=== PATIENT | female | born 1985 | race Caucasian/White ===

== ENCOUNTER → 2017-08-12 | Outpatient (CLI) | payer BC ==
[2016-08-06 08:21] VITALS: BMI 22.7
[~2017-08-12] MED LIST: ACET-3017 PO; ALBU8.5H12 IH; AMO500 PO; ANTIBIOTIC; ANXIETY MED; AUG500 PO; AZIT1PAC21 PO; BENZ100C26 PO; BUSP10TA95 PO; CEP500 PO; CITA-156 PO; CLON0.5T66 PO; CODE118S5 PO; DEPO-LUPRON IJ; DESV50TA9 PO; DEXA2TAB7 PO; DIA5 PO; DIPH-740 PO; ESC10 PO; ETHI1TAB3 PO; FAMO20TA28 PO; FLUO-202 PO; FLUT16SP20 NS; GUAI-652 PO; HYDR-318 PO; HYDR-389 PO; HYDR-4225 PO; HYDR473S4 PO; IBUP-1618 PO; IBUP600T22 PO; IBUP800T37 PO; INDO75CA PO; LAMO25TA64 PO; LEVO-85 PO; LOR5/325 PO; MULT-865 PO; MULT1CAP41 PO; NIT100 PO; NORG1TAB6 PO; OMEP-114 PO; ONDA4TAB PO; ONDA4TAB97 PO; PANT40TA65 PO; PARO-243 PO; PNV1TABL92 PO; PRE10 PO; PRE20 PO; PRED20TA6 PO; PRO25 PO; PROM-110 PO; TEST5POW21 MC; [UNRECOGNIZED DRUG - OTHER]
[2017-08-12 15:44] LABS: PLATELET COUNT, AUTOMATED 160 K/uL (150-450)
== END ==
LOC: LAB 15:13
PROVIDERS: ATTEND Nurse Practitioner Primary Care
DX: R53.83 Other fatigue (principal)
CPT/HCPCS: 36415; 82040; 82247; 82306; 82310; 82374; 82435; 82565; 82728; 82947; 83540; 83550; 84075; 84132; 84155; 84295; 84439; 84443; 84450; 84460; 84520; 85025; 86665

== ENCOUNTER 2017-08-16 21:57 | Emergency (ER) | payer BC ==
[2016-08-06 08:21] VITALS: Ht 175.3 cm; Wt 72.6 kg
[~2017-08-16] VITALS: Ht 175.3 cm; Wt 72.6 kg
[~2017-08-16 21:57] MED LIST changes: -NAPR500T31 PO
--- NOTE | 2017-08-16 22:21 | ER Report ---
History and Physical Time Seen By MD: 22:21 Hx. of Stated Complaint: PT REPORTS PAIN IN RLQ THAT STARTED A COUPLE OF DAYS AGO. WAS SEEN IN DR OFFICE EARLIER TODAY. THEY SUGGESTED THAT SHE COME TO ER IF PAIN GOT WORSE. HPI/ROS 32-year-old female presents with generalized abdominal pain that has moved to the right mid abdomen. Pain started approximately 36 hours ago has been associated with intermittent spells of diarrhea. Pain tends to be constant without any fluctuation. She tells me the bumps in the car were also uncomfortable on the way here. She's had no significant vomiting. She's had no fevers, chills, chest pain, headache, neck pain, sore throat, congestion, vision changes, rash. Was seen by her primary care doctor earlier yesterday for evaluation and had an essentially normal workup. Was advised to return to the emergency department if symptoms got worse. She does describe it pain was more generalized and periumbilical and has kind of moved to the right side. She's had a total hysterectomy with right oophorectomy in the past. She's had no vaginal discharge, no pain or frequency with urination. She doesn't note any recent sick contacts. Review of systems per history of present illness otherwise negative Remainder of the 14 system rev: Yes Allergies: Coded Allergies: oxycodone (Unverified Allergy, Intermediate, SWOLLEN MOUTH OR HIVES , ) propoxyphene (Verified Allergy, Intermediate, SWOLLEN MOUTH OR HIVES , 08/16) latex (Unverified Allergy, Unknown, 08/16/17) Home Meds Active Scripts Naproxen (NAPROXEN) 500 Mg Tablet, 500 MG PO BID for 7 Days, #14 TAB Prov:VIELKA HERNANDEZ MD 08/17/17 Promethazine Hcl (PROMETHAZINE HCL) 25 Mg Tablet, 25 MG PO Q8H Y for nausea, # 10 TAB 0 Refills Prov:VIELKA HERNANDEZ MD 08/17/17 Citalopram Hydrobromide (CELEXA) 20 Mg Tablet, 20 MG PO QDAY, #90 TAB Prov:GAVIN HERNANDEZ DNP, ADMINISTRATIVE SUPPORT CLERK-BC 08/16/17 Pantoprazole Sodium (PANTOPRAZOLE SODIUM) 40 Mg Tablet., 40 MG PO QDAY, #30 CAP 6 Refills Prov:QASIM SCHMID MD 03/18/16 Reported Medications Multivitamin (DAILY MULTIPLE VITAMIN) 1 Each Tablet, 1 TAB PO DAILY 08/12/17 Hydroxyzine Hcl (HYDROXYZINE HCL) 25 Mg Tablet, 1 TAB PO QHS 08/12/17 Buspirone Hcl (BUSPIRONE HCL) 10 Mg Tablet, 1 TAB PO QHS, #10 TAB 08/12/17 Discontinued Reported Medications Paroxetine Hcl (PAXIL) 20 Mg Tablet, 20 MG PO QDAY, TAB 01/06/17 Testosterone (TESTOSTERONE) 5 Gm Powder, 5 GM MC 01/06/17 Diphenhydramine Hcl (BENADRYL) 25 Mg Capsule, 25 MG PO QHS Y for INSOMNIA, CAPSULE 08/05/16 Discontinued Scripts Indomethacin (INDOMETHACIN) 75 Mg Capsule.er, 75 MG PO BID for 7 Days, TAB Prov:CASEY URRUTIA MD 01/06/17 Past Medical/Surgical History Per history of present illness Hx Smoking: Yes (OFF AND ON FOR 5 YRS) Smoking Status: Current: Some Days Smoker Hx Substance Use Disorder: No Hx Alcohol Use: Yes Constitutional Vital Sign - Last 24 Hours 08/16/17 08/16/17 08/16/17 08/16/17 22:02 22:05 22:15 22:30 Temp 99.3 Pulse 86 87 90 Resp 14 B/P (MAP) 133/81 (98) 133/81 125/77 (93) Pulse Ox 95 95 98 O2 Delivery Room Air 08/16/17 08/16/17 08/16/17 08/16/17 22:45 23:05 23:15 23:30 Pulse 83 86 91 88 Resp 14 B/P (MAP) 110/77 (88) 113/72 (86) Pulse Ox 95 97 94 97 O2 Delivery Room Air 08/16/17 08/17/17 08/17/17 08/17/17 23:45 00:00 00:15 00:30 Pulse 89 88 86 82 B/P (MAP) 114/79 (91) 109/74 (86) Pulse Ox 94 94 94 95 08/17/17 08/17/17 08/17/17 08/17/17 01:10 01:11 01:11 01:15 Pulse 84 110 106 78 Resp 16 18 18 B/P (MAP) 104/60 (75) 102/77 (85) 107/72 (84) Pulse Ox 92 95 95 93 O2 Delivery Room Air Room Air Room Air Physical Exam Physical exam: Vital signs noted. General: Patient alert moderate discomfort. [Does not appear ill]. Skin: [Warm, dry, without rashes, or lesions]. Head: [Normocephalic, atraumatic]. Eye: [Normal conjunctiva]. ENMT: Oral mucosa moist. Neck: [Supple, trachea midline]. Cardiovascular: [Regular rate and rhythm without gallops murmurs or rubs. Normal peripheral perfusion with no edema noted]. Respiratory: [Lungs clear to auscultation bilaterally with nonlabored respirations. Breath sounds are equal with symmetric expansion]. Chest wall: [No tenderness or deformity noted]. Gastrointestinal: Abdomen soft with normal bowel sounds. Diffuse tenderness that localizes to the right mid abdomen with mild guarding and rebound. Localization actually proximal to no McBurney's point. No pelvic tenderness.. Back: Mild tenderness to percussion right flank. Musculoskeletal: [Normal range of motion throughout with normal strength. No tenderness, swelling or deformities noted. Moves all extremities equally]. Neurologic: [Patient alert and oriented 4 with no focal neuro deficits cranial nerves II - XII grossly intact. Patient has normal speech] Psychiatric: [Patient is cooperative with appropriate mood and affect] Medical Decision Making Data Points Result Diagram: 08/16/17 2212 08/16/17 2212 Laboratory Hematology Test 08/16/17 22:01 08/16/17 22:12 Urine Color Yellow Urine Clarity Clear Urine pH 5.0 pH (4.8-9.5) Urine Specific Gerber 1.013 Urine Protein Negative mg/dL (NEGATIVE) Urine Glucose (UA) Negative mg/dL (NEGATIVE) Urine Ketones Negative mg/dL (NEGATIVE) Urine Blood Negative (NEGATIVE) Urine Nitrite Negative (NEGATIVE) Urine Bilirubin Negative (NEGATIVE) Urine Urobilinogen 2.0 mg/dL (0.2-1.9) Urine Leukocyte Esterase Negative (NEGATIVE) Urine RBC <1 /HPF (0-2/HPF) Urine WBC 1 /HPF (0-5/HPF) Urine Squamous Epithelial Cells Many /LPF (</=FEW) Urine Bacteria Negative /HPF (NONE-FEW) Urine Mucus Few /HPF (NONE-FEW) Urine HCG, Qualitative Negative (NEGATIVE) Red Blood Count 5.36 M/uL (4.17-5.56) Mean Corpuscular Volume 90.8 fL (80.0-96.0) Mean Corpuscular Hemoglobin 31.6 pg (26.0-33.0) Mean Corpuscular Hemoglobin Concent 34.9 g/dL (32.0-36.0) Red Cell Distribution Width 13.7 % (11.5-14.5) Mean Platelet Volume 10.3 fL (7.2-11.1) Neutrophils (%) (Auto) 64.3 % (39.4-72.5) Lymphocytes (%) (Auto) 27.6 % (17.6-49.6) Monocytes (%) (Auto) 5.4 % (4.1-12.4) Eosinophils (%) (Auto) 1.5 % (0.4-6.7) Basophils (%) (Auto) 1.2 % (0.3-1.4) Nucleated RBC Relative Count (auto) 0.0 /100WBC Neutrophils # (Auto) 4.9 K/uL (2.0-7.4) Lymphocytes # (Auto) 2.1 K/uL (1.3-3.6) Monocytes # (Auto) 0.4 K/uL (0.3-1.0) Eosinophils # (Auto) 0.1 K/uL (0.0-0.5) Basophils # (Auto) 0.1 K/uL (0.0-0.1) Nucleated RBC Absolute Count (auto) 0.00 K/uL Sodium Level 140 mmol/L (137-145) Potassium Level 3.7 mmol/L (3.5-5.0) Chloride Level 104 mmol/L (98-107) Carbon Dioxide Level 24 mmol/L (22-31) Blood Urea Nitrogen 10 mg/dl (7-18) Creatinine 0.90 mg/dl (0.52-1.04) Glomerular Filtration Rate Calc > 60.0 Random Glucose 89 mg/dl (75-110) Calcium Level 9.1 mg/dl (8.4-10.2) Total Bilirubin 0.6 mg/dl (0.2-1.3) Aspartate Amino Transf (AST/SGOT) 25 U/L (0-35) Alanine Aminotransferase (ALT/SGPT) 33 U/L (0-56) Alkaline Phosphatase 81 U/L (0-126) Total Protein 7.2 gm/dl (6.3-8.2) Albumin 4.3 g/dl (3.5-5.0) Chemistry Test 08/16/17 22:01 08/16/17 22:12 Urine Color Yellow Urine Clarity Clear Urine pH 5.0 pH (4.8-9.5) Urine Specific Gerber 1.013 Urine Protein Negative mg/dL (NEGATIVE) Urine Glucose (UA) Negative mg/dL (NEGATIVE) Urine Ketones Negative mg/dL (NEGATIVE) Urine Blood Negative (NEGATIVE) Urine Nitrite Negative (NEGATIVE) Urine Bilirubin Negative (NEGATIVE) Urine Urobilinogen 2.0 mg/dL (0.2-1.9) Urine Leukocyte Esterase Negative (NEGATIVE) Urine RBC <1 /HPF (0-2/HPF) Urine WBC 1 /HPF (0-5/HPF) Urine Squamous Epithelial Cells Many /LPF (</=FEW) Urine Bacteria Negative /HPF (NONE-FEW) Urine Mucus Few /HPF (NONE-FEW) Urine HCG, Qualitative Negative (NEGATIVE) White Blood Count 7.7 k/uL (4.5-11.0) Red Blood Count 5.36 M/uL (4.17-5.56) Hemoglobin 17.0 g/dL (12.0-16.0) Hematocrit 48.7 % (34.0-47.0) Mean Corpuscular Volume 90.8 fL (80.0-96.0) Mean Corpuscular Hemoglobin 31.6 pg (26.0-33.0) Mean Corpuscular Hemoglobin Concent 34.9 g/dL (32.0-36.0) Red Cell Distribution Width 13.7 % (11.5-14.5) Platelet Count 174 K/uL (150-450) Mean Platelet Volume 10.3 fL (7.2-11.1) Neutrophils (%) (Auto) 64.3 % (39.4-72.5) Lymphocytes (%) (Auto) 27.6 % (17.6-49.6) Monocytes (%) (Auto) 5.4 % (4.1-12.4) Eosinophils (%) (Auto) 1.5 % (0.4-6.7) Basophils (%) (Auto) 1.2 % (0.3-1.4) Nucleated RBC Relative Count (auto) 0.0 /100WBC Neutrophils # (Auto) 4.9 K/uL (2.0-7.4) Lymphocytes # (Auto) 2.1 K/uL (1.3-3.6) Monocytes # (Auto) 0.4 K/uL (0.3-1.0) Eosinophils # (Auto) 0.1 K/uL (0.0-0.5) Basophils # (Auto) 0.1 K/uL (0.0-0.1) Nucleated RBC Absolute Count (auto) 0.00 K/uL Glomerular Filtration Rate Calc > 60.0 Calcium Level 9.1 mg/dl (8.4-10.2) Total Bilirubin 0.6 mg/dl (0.2-1.3) Aspartate Amino Transf (AST/SGOT) 25 U/L (0-35) Alanine Aminotransferase (ALT/SGPT) 33 U/L (0-56) Alkaline Phosphatase 81 U/L (0-126) Total Protein 7.2 gm/dl (6.3-8.2) Albumin 4.3 g/dl (3.5-5.0) Urinalysis Test 08/16/17 22:01 Urine Color Yellow Urine Clarity Clear Urine pH 5.0 pH (4.8-9.5) Urine Specific Gerber 1.013 Urine Protein Negative mg/dL (NEGATIVE) Urine Glucose (UA) Negative mg/dL (NEGATIVE) Urine Ketones Negative mg/dL (NEGATIVE) Urine Blood Negative (NEGATIVE) Urine Nitrite Negative (NEGATIVE) Urine Bilirubin Negative (NEGATIVE) Urine Urobilinogen 2.0 mg/dL (0.2-1.9) Urine Leukocyte Esterase Negative (NEGATIVE) Urine RBC <1 /HPF (0-2/HPF) Urine WBC 1 /HPF (0-5/HPF) Urine Squamous Epithelial Cells Many /LPF (</=FEW) Urine Bacteria Negative /HPF (NONE-FEW) Urine Mucus Few /HPF (NONE-FEW) Urine HCG, Qualitative Negative (NEGATIVE) EKG/Imaging Imaging CT abdomen and pelvis with no acute process. Appendix was visualized. Reviewed radiology report. ED Course/Re-evaluation ED Course 32-year-old female with approximately a day and a half of abdominal pain and diarrhea. Initial pain was more generalized and moved to the right lower to midquadrant. Serial exams with improvement although remained somewhat tender. No surgical signs on final exam. Was seen in primary care office earlier today and advised to return if symptoms got worse and is a day progressed and she's had increasing pain. Laboratory values are all reassuring with a normal white blood count, urinalysis shows no signs of infection and normal electrolytes. CT scan abdomen and pelvis read by radiology showed no acute process and notes that her appendix was well-visualized. At this point in time I'm not concerned for any pelvic or ovarian emergencies. She only has her left ovary symptoms are not consistent with torsion. She has no vaginal discharge. She's had no blood in her stools. Plan for home with 4 tablets of [place], Naprosyn and Phenergan. Patient follow-up with her primary doctor in the next 8-12 hours for recheck if symptoms have not resolved or to return to the emergency department for recheck. She will return here for any new or worsening symptoms. Discussed results and plan in detail with patient expressed understanding agreement. Re-evaluation Patient continues to have some mild to moderate diffuse tenderness localized to the right mid abdomen. No guarding or rebound at this time. I shown some improvement. Patient able to rest comfortably tolerating po fluids. Decision to Disposition Date: Aug 17, 2017 Decision to Disposition Time: 01:12 Depart Departure Latest Vital Signs Vital Signs Date Time Temp Pulse Resp B/P (MAP) Pulse Ox O2 Delivery O2 Flow Rate FiO2 08/17/17 01:15 78 93 08/17/17 01:11 18 107/72 (84) Room Air 08/16/17 22:05 99.3 Impression: Primary Impression: Abdominal pain Additional Impression: Diarrhea Condition: Improved Disposition: HOME OR SELF-CARE Referrals: QASIM SCHMID MD (PCP) New Scripts Naproxen (NAPROXEN) 500 Mg Tablet 500 MG PO BID for 7 Days, #14 TAB Prov: VIELKA HERNANDEZ MD 08/17/17 Promethazine Hcl (PROMETHAZINE HCL) 25 Mg Tablet 25 MG PO Q8H Y for nausea, #10 TAB 0 Refills Prov: VIELKA HERNANDEZ MD 08/17/17 Patient Instructions: Abdominal Pain (ED) Additional Instructions: Follow-up with your primary care doctor in the next 8-12 hours for recheck if the pain is not resolved. Return to the emergency department if the symptoms worsen or there are any new or other concerning symptoms. Problem Qualifiers VIELKA HERNANDEZ MD Aug 16, 2017 22:21
[2017-08-16 22:32] LABS: PLATELET COUNT, AUTOMATED 174 K/uL (150-450)
[2017-08-16] MEDS ORDERED: KETOROLAC 15 MG/ML VIAL IVP ONE (22:40)
[2017-08-16] MEDS ORDERED: IOPAMIDOL 76% 75 ML INFUS BTL 75 ML ONE (22:51)
[2017-08-16] MEDS ORDERED: MORPHINE 2 MG/ML SYR IVP PRN (23:30)
[2017-08-16] MEDS ORDERED: MORPHINE 10 MG/ML SYR IVP ONE (23:30)
--- NOTE | 2017-08-17 00:07 | RADIOLOGY IMAGING REPORT ---
FACILITY: [facility] - [place] PATIENT NAME: Kim Dorsey : 1985 MR: [id number] V: [id number] EXAM DATE: ORDERING PHYSICIAN: VIELKA HERNANDEZ TECHNOLOGIST: [place] [facility] [place]: Kim Dorsey : 1985 Visit/Account:[id number] Date of Sevice: 08/16/2017 CT of the abdomen and pelvis with contrast: Indication: Right lower quadrant pain. Technique: Helical CT was performed through the abdomen and pelvis following IV contrast enhancement with 75 cc of Isovue-[id number]. Multiplanar reconstructions are reviewed. One of the following dose optimization techniques was utilized in the performance of this exam: Autom ated exposure control; adjustment of the mA and/or kV according to the patient's size; or use of an i terative reconstruction technique. Specific details can be referenced in the facility's radiology C T exam operational policy. Comparison: None. Lower lung farris: No focal parenchymal or pleural abnormality is identified. Liver: Normal in size, shape, and density. There is uniform enhancement of the venous structures. Gallbladder/biliary tree: The gallbladder is normal in size and homogeneous in density. The bile duct s are normal in caliber. Pancreas: Normal in size, shape, and density. Spleen: Normal in size, shape, and density. Adrenal glands: Within normal limits. Kidneys/urinary bladder: There appears to be a small cyst in the left kidney. The kidneys are otherwi se normal in size, shape, and density. There are no signs of urinary tract calculus or obstruction. The urinary bladder is unremarkable, as visualized. Intestinal structures: Unremarkable, as visualized. There are no signs of obstruction or focal inflam matory changes. The appendix is well visualized and appears normal. There are no signs of acute appen dicitis. Pelvis: The uterus is absent. There are no signs of soft tissue mass or fluid collection in the pelvi s. Aorta and vascular structures: Within normal limits. Ascites or fluid collections: None seen. Skeletal structures: Intact and unremarkable. Impression: There are no signs of appendicitis. No acute process is clearly identified in the abdomen or pelvis. Report Dictated By: Daniel Ramirez MD at 08/16/2017 11:55 PM Report E-Signed By: Daniel Ramirez MD at 08/17/2017 12:02 AM WSN:[id number]
[2017-08-17] MEDS ORDERED: METOCLOPRAMIDE 10 MG/2 ML SDV IVP ONE (00:25)
[2017-08-17] MEDS ORDERED: diphenhydrAMINE 50 MG/ML VIAL IVP ONE (00:25)
[2017-08-17 01:11] VITALS: BP 102/77
[2017-08-17] MEDS ORDERED: NAPR500T31 PO (01:19)
[2017-08-17] MEDS ORDERED: PROM-110 PO (01:19)
[2017-08-17] MEDS ORDERED: ACET/HYDROC 5/325MG TH ER ONLY 2 TAB/BOTTLE PO PRN (01:20)
[2017-08-17] MEDS ORDERED: ACET/HYDROC 5/325MG TH ER ONLY 2 TAB/BOTTLE PO ONE ×2 (01:25)
[2017-08-18] MEDS ORDERED: ONDA4TAB PO (12:50)
== END 2017-08-17 01:37 | disposition home or self-care (01) ==
LOC: ER 22:33
DX: R10.31 Right lower quadrant pain (principal); R19.7 Diarrhea, unspecified
CPT/HCPCS: 74177; 81001; 81025; 85025; 96374; 96375; 99284; J1200; J1885; J2270; J2765; Q9967; 82040; 82247; 82310; 82374; 82435; 82565; 82947; 84075; 84132; 84155; 84295; 84450; 84460; 84520

== ENCOUNTER → 2017-08-16 | Outpatient (CLI) | payer BC ==
[2016-08-06 08:21] VITALS: BMI 22.7
[~2017-08-16] MED LIST changes: +NAPR500T31 PO
[2017-08-16 10:45] LABS: PLATELET COUNT, AUTOMATED 167 K/uL (150-450)
== END ==
LOC: LAB 10:13
PROVIDERS: ATTEND Nurse Practitioner Primary Care
DX: R10.31 Right lower quadrant pain (principal)
CPT/HCPCS: 36415; 85025

== ENCOUNTER 2017-08-18 10:36 | Emergency (ER) | payer BC ==
[2016-08-06 08:21] VITALS: Ht 175.3 cm; Wt 72.6 kg
[~2017-08-18] VITALS: Ht 175.3 cm; Wt 72.6 kg
[~2017-08-18 10:36] MED LIST changes: +NAPR500T31 PO
[2017-08-18] MEDS ORDERED: ONDANSETRON 4 MG/2 ML VIAL IVP ONE (10:55)
--- NOTE | 2017-08-18 10:58 | ER Report ---
History and Physical Time Seen By MD: 10:45 HPI/ROS CHIEF COMPLAINT: Abdominal pain HISTORY OF PRESENT ILLNESS: Patient is a 32-year-old female who presents the ED with complaint of abdominal pain for the past 3 days. She states that she was seen by her primary care provider 2 days ago and was at time having more right lower quadrant abdominal pain. She did have some labs completed and was told to go to the emergency room if she was having any worsening pain. She did go to the emergency room later that evening and had labs completed as well as a CT of the abdomen/pelvis all of which were essentially normal. Patient states that she was given some Lortab to take for pain relief states that she was continuing to have intermittent pain and did not like to take the Lortab due to making her drowsy and she has 3 children. Patient states that today she noticed the pain being slightly worse she states that now it has been radiating into her right upper quadrant and right lower back area. She has had a couple episodes of diarrhea today but denies any blood or black stools. She states that she has been nauseated but denies any vomiting. Patient states that the only abdominal surgery she had is a hysterectomy and a right oopherectomy. She denies any dysuria, hematuria, increased urinary frequency. REVIEW OF SYSTEMS: Constitutional: [No fever, no chills.] Eyes: [No discharge.] ENT: [No sore throat.] Cardiovascular: [No chest pain, no palpitations.] Respiratory: [No cough, no shortness of breath.] Gastrointestinal: [No abdominal pain, no vomiting.] Genitourinary: [No hematuria.] Musculoskeletal: [No back pain.] Skin: [No rashes.] Neurological: [No headache.] Allergies: Coded Allergies: oxycodone (Unverified Allergy, Intermediate, SWOLLEN MOUTH OR HIVES , ) propoxyphene (Verified Allergy, Intermediate, SWOLLEN MOUTH OR HIVES , 08/16) latex (Unverified Allergy, Unknown, 08/16/17) Home Meds Active Scripts Naproxen (NAPROXEN) 500 Mg Tablet, 500 MG PO BID for 7 Days, #14 TAB Prov:VIELKA HERNANDEZ MD 08/17/17 Promethazine Hcl (PROMETHAZINE HCL) 25 Mg Tablet, 25 MG PO Q8H Y for nausea, # 10 TAB 0 Refills Prov:VIELKA HERNANDEZ MD 08/17/17 Citalopram Hydrobromide (CELEXA) 20 Mg Tablet, 20 MG PO QDAY, #90 TAB Prov:GAVIN HERNANDEZ DNP, COMPUTER NETWORKER-BC 08/16/17 Pantoprazole Sodium (PANTOPRAZOLE SODIUM) 40 Mg Tablet.dr, 40 MG PO QDAY, #30 CAP 6 Refills Prov:QASIM SCHMID MD 03/18/16 Reported Medications Multivitamin (DAILY MULTIPLE VITAMIN) 1 Each Tablet, 1 TAB PO DAILY 08/12/17 Hydroxyzine Hcl (HYDROXYZINE HCL) 25 Mg Tablet, 1 TAB PO QHS 08/12/17 Buspirone Hcl (BUSPIRONE HCL) 10 Mg Tablet, 1 TAB PO QHS, #10 TAB 08/12/17 Discontinued Reported Medications Paroxetine Hcl (PAXIL) 20 Mg Tablet, 20 MG PO QDAY, TAB 01/06/17 Testosterone (TESTOSTERONE) 5 Gm Powder, 5 GM MC 01/06/17 Diphenhydramine Hcl (BENADRYL) 25 Mg Capsule, 25 MG PO QHS Y for INSOMNIA, CAPSULE 08/05/16 Discontinued Scripts Indomethacin (INDOMETHACIN) 75 Mg Capsule.er, 75 MG PO BID for 7 Days, TAB Prov:CASEY URRUTIA MD 01/06/17 Reviewed Nurses Notes: Yes Old Medical Records Reviewed: Yes Hx Smoking: Yes (OFF AND ON FOR 5 YRS) Smoking Status: Current: Some Days Smoker Hx Substance Use Disorder: No Hx Alcohol Use: Yes Constitutional Vital Sign - Last 24 Hours 08/18/17 08/18/17 08/18/17 08/18/17 10:44 10:45 10:51 11:00 Temp 98.4 Pulse 80 101 Resp 16 B/P (MAP) 123/95 (104) 123/95 114/78 (90) Pulse Ox 97 99 O2 Delivery Room Air 08/18/17 08/18/17 08/18/17 08/18/17 11:06 11:21 11:30 11:36 Pulse 73 68 71 B/P (MAP) 120/84 (96) Pulse Ox 95 94 97 08/18/17 08/18/17 08/18/17 08/18/17 11:41 11:41 11:46 11:46 Pulse 69 69 78 78 Pulse Ox 93 93 92 92 08/18/17 08/18/17 08/18/17 08/18/17 11:51 11:51 11:56 11:56 Pulse 78 78 68 68 Pulse Ox 96 96 96 96 08/18/17 08/18/17 08/18/17 08/18/17 12:00 12:00 12:01 12:01 Pulse 68 68 B/P (MAP) 104/76 (85) 104/76 (85) Pulse Ox 97 97 08/18/17 12:06 Pulse 69 Pulse Ox 92 Physical Exam General Appearance: The patient is alert, has no immediate need for airway protection and no signs of toxicity. Patient appears to be in some mild distress. Eyes: Pupils equal and round no pallor or injection. ENT, Mouth: Mucous membranes are moist. Respiratory: There are no retractions, lungs are clear to auscultation. Cardiovascular: Regular rate and rhythm. Gastrointestinal: There is right upper quadrant, epigastric, right lower quadrant, suprapubic tenderness with palpation. The worst pain appears to be in her right upper quadrant at this time. Negative CVA tenderness to percussion bilaterally. Normal bowel sounds in all 4 quadrants. The abdomen is soft. There is no rebound but there is some slight guarding more on the right upper and lower quadrants. Skin: Warm and dry, no rashes. Musculoskeletal: Neck is supple non tender. Extremities are nontender, nonswollen and have full range of motion. DIFFERENTIAL DIAGNOSIS: After history and physical exam differential diagnosis was considered for abdominal pain including but not limited to appendicitis, cholecystitis, gastritis and urinary tract infection. Medical Decision Making Data Points Result Diagram: 08/18/17 1047 08/18/17 1047 Laboratory Hematology Test 08/18/17 10:42 08/18/17 10:47 Urine Color Straw Urine Clarity Clear Urine pH 7.0 pH (4.8-9.5) Urine Specific [place] 1.002 Urine Protein Negative mg/dL (NEGATIVE) Urine Glucose (UA) Negative mg/dL (NEGATIVE) Urine Ketones Negative mg/dL (NEGATIVE) Urine Blood Negative (NEGATIVE) Urine Nitrite Negative (NEGATIVE) Urine Bilirubin Negative (NEGATIVE) Urine Urobilinogen Negative mg/dL (0.2-1.9) Urine Leukocyte Esterase Negative (NEGATIVE) Urine RBC None /HPF (0-2/HPF) Urine WBC <1 /HPF (0-5/HPF) Urine Squamous Epithelial Cells Few /LPF (</=FEW) Urine Bacteria Negative /HPF (NONE-FEW) Urine Mucus None /HPF (NONE-FEW) Red Blood Count 5.12 M/uL (4.17-5.56) Mean Corpuscular Volume 91.2 fL (80.0-96.0) Mean Corpuscular Hemoglobin 31.9 pg (26.0-33.0) Mean Corpuscular Hemoglobin Concent 35.0 g/dL (32.0-36.0) Red Cell Distribution Width 13.8 % (11.5-14.5) Mean Platelet Volume 9.9 fL (7.2-11.1) Neutrophils (%) (Auto) 76.6 % (39.4-72.5) Lymphocytes (%) (Auto) 17.3 % (17.6-49.6) Monocytes (%) (Auto) 5.0 % (4.1-12.4) Eosinophils (%) (Auto) 0.3 % (0.4-6.7) Basophils (%) (Auto) 0.8 % (0.3-1.4) Nucleated RBC Relative Count (auto) 0.0 /100WBC Neutrophils # (Auto) 4.7 K/uL (2.0-7.4) Lymphocytes # (Auto) 1.1 K/uL (1.3-3.6) Monocytes # (Auto) 0.3 K/uL (0.3-1.0) Eosinophils # (Auto) 0.0 K/uL (0.0-0.5) Basophils # (Auto) 0.1 K/uL (0.0-0.1) Nucleated RBC Absolute Count (auto) 0.00 K/uL Sodium Level 140 mmol/L (137-145) Potassium Level 3.8 mmol/L (3.5-5.0) Chloride Level 102 mmol/L (98-107) Carbon Dioxide Level 25 mmol/L (22-31) Blood Urea Nitrogen 8 mg/dl (7-18) Creatinine 0.80 mg/dl (0.52-1.04) Glomerular Filtration Rate Calc > 60.0 Random Glucose 84 mg/dl (75-110) Lactate 1.3 mmol/L (0.7-2.1) Calcium Level 9.3 mg/dl (8.4-10.2) Total Bilirubin 0.9 mg/dl (0.2-1.3) Aspartate Amino Transf (AST/SGOT) 21 U/L (0-35) Alanine Aminotransferase (ALT/SGPT) 33 U/L (0-56) Alkaline Phosphatase 71 U/L (0-126) Total Protein 7.3 gm/dl (6.3-8.2) Albumin 4.5 g/dl (3.5-5.0) Lipase 72 U/L (23-300) Chemistry Test 08/18/17 10:42 08/18/17 10:47 Urine Color Straw Urine Clarity Clear Urine pH 7.0 pH (4.8-9.5) Urine Specific [place] 1.002 Urine Protein Negative mg/dL (NEGATIVE) Urine Glucose (UA) Negative mg/dL (NEGATIVE) Urine Ketones Negative mg/dL (NEGATIVE) Urine Blood Negative (NEGATIVE) Urine Nitrite Negative (NEGATIVE) Urine Bilirubin Negative (NEGATIVE) Urine Urobilinogen Negative mg/dL (0.2-1.9) Urine Leukocyte Esterase Negative (NEGATIVE) Urine RBC None /HPF (0-2/HPF) Urine WBC <1 /HPF (0-5/HPF) Urine Squamous Epithelial Cells Few /LPF (</=FEW) Urine Bacteria Negative /HPF (NONE-FEW) Urine Mucus None /HPF (NONE-FEW) White Blood Count 6.2 k/uL (4.5-11.0) Red Blood Count 5.12 M/uL (4.17-5.56) Hemoglobin 16.3 g/dL (12.0-16.0) Hematocrit 46.6 % (34.0-47.0) Mean Corpuscular Volume 91.2 fL (80.0-96.0) Mean Corpuscular Hemoglobin 31.9 pg (26.0-33.0) Mean Corpuscular Hemoglobin Concent 35.0 g/dL (32.0-36.0) Red Cell Distribution Width 13.8 % (11.5-14.5) Platelet Count 155 K/uL (150-450) Mean Platelet Volume 9.9 fL (7.2-11.1) Neutrophils (%) (Auto) 76.6 % (39.4-72.5) Lymphocytes (%) (Auto) 17.3 % (17.6-49.6) Monocytes (%) (Auto) 5.0 % (4.1-12.4) Eosinophils (%) (Auto) 0.3 % (0.4-6.7) Basophils (%) (Auto) 0.8 % (0.3-1.4) Nucleated RBC Relative Count (auto) 0.0 /100WBC Neutrophils # (Auto) 4.7 K/uL (2.0-7.4) Lymphocytes # (Auto) 1.1 K/uL (1.3-3.6) Monocytes # (Auto) 0.3 K/uL (0.3-1.0) Eosinophils # (Auto) 0.0 K/uL (0.0-0.5) Basophils # (Auto) 0.1 K/uL (0.0-0.1) Nucleated RBC Absolute Count (auto) 0.00 K/uL Glomerular Filtration Rate Calc > 60.0 Lactate 1.3 mmol/L (0.7-2.1) Calcium Level 9.3 mg/dl (8.4-10.2) Total Bilirubin 0.9 mg/dl (0.2-1.3) Aspartate Amino Transf (AST/SGOT) 21 U/L (0-35) Alanine Aminotransferase (ALT/SGPT) 33 U/L (0-56) Alkaline Phosphatase 71 U/L (0-126) Total Protein 7.3 gm/dl (6.3-8.2) Albumin 4.5 g/dl (3.5-5.0) Lipase 72 U/L (23-300) Urinalysis Test 08/18/17 10:42 Urine Color Straw Urine Clarity Clear Urine pH 7.0 pH (4.8-9.5) Urine Specific [place] 1.002 Urine Protein Negative mg/dL (NEGATIVE) Urine Glucose (UA) Negative mg/dL (NEGATIVE) Urine Ketones Negative mg/dL (NEGATIVE) Urine Blood Negative (NEGATIVE) Urine Nitrite Negative (NEGATIVE) Urine Bilirubin Negative (NEGATIVE) Urine Urobilinogen Negative mg/dL (0.2-1.9) Urine Leukocyte Esterase Negative (NEGATIVE) Urine RBC None /HPF (0-2/HPF) Urine WBC <1 /HPF (0-5/HPF) Urine Squamous Epithelial Cells Few /LPF (</=FEW) Urine Bacteria Negative /HPF (NONE-FEW) Urine Mucus None /HPF (NONE-FEW) EKG/Imaging Imaging RUQ US: IMPRESSION: 1. Negative ultrasound. Specifically no cholelithiasis or cholecystitis change. Report Dictated By: Eddie Pond MD at 08/18/2017 12:33 PM Report E-Signed By: Eddie Pond MD at 08/18/2017 12:37 PM ED Course/Re-evaluation ED Course Will obtain labs. Patient will be given 4 mg IV Zofran for nausea relief. 08/18/2017 12:47:15 pm - absent imaging with patient. Given her normal CT from just 2 days ago it appears that there is not any acute cholecystitis or appendicitis at this point. She also has essentially normal labs. Discussed possibility of other: Issues or other gastrointestinal issues and should follow- up with GI and her primary care regarding this. She may end up needing a colonoscopy given that she has been having some diarrhea with this pain. Decision to Disposition Date: Aug 18, 2017 Decision to Disposition Time: 12:48 Depart Departure Latest Vital Signs Vital Signs Date Time Temp Pulse Resp B/P (MAP) Pulse Ox O2 Delivery O2 Flow Rate FiO2 08/18/17 12:06 69 92 08/18/17 12:00 104/76 (85) 08/18/17 10:45 98.4 16 Room Air Impression: Primary Impression: Abdominal pain Condition: Improved Disposition: HOME OR SELF-CARE Referrals: QASIM SCHMID MD (PCP) GAVIN HERNANDEZ DNP, COMPUTER NETWORKER- GASTROENTEROLOGY New Scripts Ondansetron (ZOFRAN ODT) 4 Mg Tab.rapdis 4 MG PO Q6H Y for NAUSEA/VOMITING, #12 TAB.ANDREW Prov: OXANA PULIDO PA-C 08/18/17 Patient Instructions: Abdominal Pain (ED) Additional Instructions: Stay well-hydrated. Follow-up with primary care provider gastroenterology in 2- 3 days. If having any worsening or concerning symptoms may return to the emergency department. Problem Qualifiers Primary Impression: Abdominal pain Abdominal location: unspecified location Qualified Codes: R10.9 - Unspecified abdominal pain OXANA PULIDO PA-C Aug 18, 2017 10:58
[2017-08-18 11:06] LABS: PLATELET COUNT, AUTOMATED 155 K/uL (150-450)
[2017-08-18] MEDS ORDERED: KETOROLAC 15 MG/ML VIAL IVP ONE (11:40)
--- NOTE | 2017-08-18 12:41 | RADIOLOGY IMAGING REPORT ---
FACILITY: [facility] - [place] PATIENT NAME: Kim Dorsey : 1985 MR: [id number] V: [id number] EXAM DATE: ORDERING PHYSICIAN: OXANA PULIDO TECHNOLOGIST: Location: [facility] - [place] Patient: Kim Dorsey : 1985 Visit/Account:[id number] Date of Sevice: 08/18/2017 GALLBLADDER HISTORY: RUQ pain, nausea GALLBLADDER HISTORY: RUQ pain, nausea ADDITIONAL HISTORY: None. COMPARISON: 01/10/2016 FINDINGS: Gallbladder: Unremarkable; no stones or sludge. Liver: 15 cm. Homogenous echotexture. No focal lesions. Common duct: Normal, 2.9 mm diameter. Pancreas: Normal where visualized Right kidney: 10.5 x 3.6 x 5.2 cm. No hydronephrosis no cortical mass lesions Upper abdominal aorta and IVC: Patent. Ascites: None visualized. IMPRESSION: 1. Negative ultrasound. Specifically no cholelithiasis or cholecystitis change. Report Dictated By: Eddie Pond MD at 08/18/2017 12:33 PM Report E-Signed By: Eddie Pond MD at 08/18/2017 12:37 PM WSN:[id number]
[2017-08-18] MEDS ORDERED: ONDA4TAB PO (12:50)
[2017-08-18 13:00] VITALS: BP 111/70
== END 2017-08-18 12:53 | disposition home or self-care (01) ==
LOC: ER 10:48
DX: R10.31 Right lower quadrant pain (principal); R10.11 Right upper quadrant pain; M54.5 Low back pain
CPT/HCPCS: 76705; 81001; 83605; 83690; 85025; 96374; 96375; 99284; J1885; J2405; 82040; 82247; 82310; 82374; 82435; 82565; 82947; 84075; 84132; 84155; 84295; 84450; 84460; 84520

== ENCOUNTER → 2017-08-25 | Outpatient (REF) | payer BC ==
[2016-08-06 08:21] VITALS: BMI 22.7
[2017-08-25 15:57] LABS: PLATELET COUNT, AUTOMATED 150 K/uL (150-450)
== END ==
LOC: ZZSENDIN 15:48
PROVIDERS: ATTEND Obstetrics & Gynecology
DX: R10.2 Pelvic and perineal pain (principal)
CPT/HCPCS: 82040; 82247; 82310; 82374; 82435; 82565; 82947; 84075; 84132; 84155; 84295; 84450; 84460; 84520; 85025

== ENCOUNTER → 2017-08-26 | Outpatient (CLI) | payer BC ==
[2016-08-06 08:21] VITALS: BMI 22.7
== END ==
LOC: LAB 09:06
PROVIDERS: ATTEND Obstetrics & Gynecology
DX: A07.1 Giardiasis [lambliasis] (principal)
CPT/HCPCS: 87045; 87177; 87205; 87269; 87324; 87449

== ENCOUNTER → 2017-09-21 | Outpatient (CLI) | payer BC ==
[2016-08-06 08:21] VITALS: BMI 22.7
== END ==
LOC: LAB 13:17
PROVIDERS: ATTEND Obstetrics & Gynecology
DX: A07.1 Giardiasis [lambliasis] (principal)
CPT/HCPCS: 87269

== ENCOUNTER 2017-09-29 06:01 | Emergency (ER) | payer BC ==
[2016-08-06 08:21] VITALS: Wt 72.6 kg
[2017-09-29] MEDS ORDERED: ERYT-108 PO (06:08)
--- NOTE | 2017-09-29 06:12 | ER Report ---
History and Physical Time Seen By MD: 06:12 Hx. of Stated Complaint: PT REPORTS WAKING UP THIS MORNING WITH PAIN IN LEFT FOOT THAT IS KEEPING HER FROM WALKING. REPORTS NO INJURY TO THE AREA. CMS INTACT. MOVEMENT LIMITED BY PAIN. MILD SWELLING TO OUTTER ASPECT OF FOOT. HPI/ROS CHIEF COMPLAINT: left foot pain HISTORY OF PRESENT ILLNESS: This is a 32 year old female. She awoke with pain in the left foot. It hurts while simply at rest, but significantly worsens with weight. She is unable to walk on the foot at this time. No injury. No change in activity or suspicion for overuse injury. No history of pain like this in the past. She has normal sensation. She can move the foot, but movement does increase the pain. Mild swelling associated with outer aspect of the foot. Skin without rashes. No family history of gout or other inflammatory conditions. REVIEW OF SYSTEMS: Respiratory: No cough or shortness of breath. Cardiovascular: No chest pain. Gastrointestinal: No nausea or vomiting. Allergies: Coded Allergies: oxycodone (Unverified Allergy, Intermediate, SWOLLEN MOUTH OR HIVES , 09/29) propoxyphene (Verified Allergy, Intermediate, SWOLLEN MOUTH OR HIVES , ) latex (Unverified Allergy, Unknown, 09/29/17) Home Meds Active Scripts Indomethacin (INDOMETHACIN) 25 Mg Capsule, 25 MG PO DIRECTED, #27 CAPSULE 0 Refills Take 2 tablets three times a day for 3 days, then decrease to 1 tablet three times a day for 3 days, then stop. Take with food. Prov:HUMAIRA BROOKS MD 09/29/17 Citalopram Hydrobromide (CELEXA) 20 Mg Tablet, 20 MG PO QDAY, #90 TAB Prov:GAVIN HERNANDEZ DNP, WALKING DRAGLINE OPERATOR-BC 08/16/17 Pantoprazole Sodium (PANTOPRAZOLE SODIUM) 40 Mg Tablet., 40 MG PO QDAY, #30 CAP 6 Refills Prov:QASIM SCHMID MD 03/18/16 Reported Medications Erythromycin Base (ERYTHROMYCIN) 500 Mg Tablet, 500 MG PO DAILY 09/29/17 Multivitamin (DAILY MULTIPLE VITAMIN) 1 Each Tablet, 1 TAB PO DAILY 08/12/17 Hydroxyzine Hcl (HYDROXYZINE HCL) 25 Mg Tablet, 1 TAB PO QHS 08/12/17 Buspirone Hcl (BUSPIRONE HCL) 10 Mg Tablet, 1 TAB PO QHS, #10 TAB 08/12/17 Discontinued Scripts Ondansetron (ZOFRAN ODT) 4 Mg Tab.rapdis, 4 MG PO Q6H Y for NAUSEA/VOMITING, # 12 TAB.ANDREW Prov:OXANA PULIDO PA-C 08/18/17 Naproxen (NAPROXEN) 500 Mg Tablet, 500 MG PO BID for 7 Days, #14 TAB Prov:VIELKA HERNANDEZ MD 08/17/17 Promethazine Hcl (PROMETHAZINE HCL) 25 Mg Tablet, 25 MG PO Q8H Y for nausea, # 10 TAB 0 Refills Prov:VIELKA HERNANDEZ MD 08/17/17 Reviewed Nurses Notes: Yes Hx Smoking: Yes (OFF AND ON FOR 5 YRS) Smoking Status: Current: Some Days Smoker Hx Substance Use Disorder: No Hx Alcohol Use: Yes Constitutional Vital Sign - Last 24 Hours 09/29/17 09/29/17 06:08 08:03 Temp 97.8 Pulse 75 84 Resp 14 14 B/P (MAP) 111/84 112/87 (95) Pulse Ox 95 98 O2 Delivery Room Air Room Air Physical Exam General: Alert, no acute distress. Musculoskeletal: Pain with palpation over the forefoot and metatarsals on the lateral aspect. No real pain with palpation of the arch or calcaneus. No pain in the toes. No pain in the ankle or lower leg. Skin: No redness or warmth. No rash. Mild swelling in the area of pain. Cardiovascular: Normal pulses and capillary refill. Neuro: Normal sensation and no weakness. Medical Decision Making Data Points Result Diagram: 09/29/17 0625 09/29/17 0625 Laboratory Hematology Test 09/29/17 06:25 Red Blood Count 4.90 M/uL (4.17-5.56) Mean Corpuscular Volume 91.3 fL (80.0-96.0) Mean Corpuscular Hemoglobin 32.5 pg (26.0-33.0) Mean Corpuscular Hemoglobin Concent 35.6 g/dL (32.0-36.0) Red Cell Distribution Width 12.8 % (11.5-14.5) Mean Platelet Volume 10.2 fL (7.2-11.1) Neutrophils (%) (Auto) 67.8 % (39.4-72.5) Lymphocytes (%) (Auto) 24.7 % (17.6-49.6) Monocytes (%) (Auto) 5.3 % (4.1-12.4) Eosinophils (%) (Auto) 1.6 % (0.4-6.7) Basophils (%) (Auto) 0.6 % (0.3-1.4) Nucleated RBC Relative Count (auto) 0.1 /100WBC Neutrophils # (Auto) 4.2 K/uL (2.0-7.4) Lymphocytes # (Auto) 1.5 K/uL (1.3-3.6) Monocytes # (Auto) 0.3 K/uL (0.3-1.0) Eosinophils # (Auto) 0.1 K/uL (0.0-0.5) Basophils # (Auto) 0.0 K/uL (0.0-0.1) Nucleated RBC Absolute Count (auto) 0.00 K/uL Erythrocyte Sedimentation Rate 1 mm/HOUR (0-20) Sodium Level 141 mmol/L (137-145) Potassium Level 4.1 mmol/L (3.5-5.0) Chloride Level 105 mmol/L (98-107) Carbon Dioxide Level 22 mmol/L (22-31) Blood Urea Nitrogen 8 mg/dl (7-18) Creatinine 0.80 mg/dl (0.52-1.04) Glomerular Filtration Rate Calc > 60.0 Random Glucose 81 mg/dl (75-110) Uric Acid 5.0 mg/dl (2.5-7.5) Calcium Level 9.2 mg/dl (8.4-10.2) Total Bilirubin 0.6 mg/dl (0.2-1.3) Aspartate Amino Transf (AST/SGOT) 21 U/L (0-35) Alanine Aminotransferase (ALT/SGPT) 29 U/L (0-56) Alkaline Phosphatase 63 U/L (0-126) C-Reactive Protein < 0.5 mg/dl (<1.0) Total Protein 6.7 gm/dl (6.3-8.2) Albumin 4.2 g/dl (3.5-5.0) Chemistry Test 09/29/17 06:25 White Blood Count 6.2 k/uL (4.5-11.0) Red Blood Count 4.90 M/uL (4.17-5.56) Hemoglobin 15.9 g/dL (12.0-16.0) Hematocrit 44.7 % (34.0-47.0) Mean Corpuscular Volume 91.3 fL (80.0-96.0) Mean Corpuscular Hemoglobin 32.5 pg (26.0-33.0) Mean Corpuscular Hemoglobin Concent 35.6 g/dL (32.0-36.0) Red Cell Distribution Width 12.8 % (11.5-14.5) Platelet Count 148 K/uL (150-450) Mean Platelet Volume 10.2 fL (7.2-11.1) Neutrophils (%) (Auto) 67.8 % (39.4-72.5) Lymphocytes (%) (Auto) 24.7 % (17.6-49.6) Monocytes (%) (Auto) 5.3 % (4.1-12.4) Eosinophils (%) (Auto) 1.6 % (0.4-6.7) Basophils (%) (Auto) 0.6 % (0.3-1.4) Nucleated RBC Relative Count (auto) 0.1 /100WBC Neutrophils # (Auto) 4.2 K/uL (2.0-7.4) Lymphocytes # (Auto) 1.5 K/uL (1.3-3.6) Monocytes # (Auto) 0.3 K/uL (0.3-1.0) Eosinophils # (Auto) 0.1 K/uL (0.0-0.5) Basophils # (Auto) 0.0 K/uL (0.0-0.1) Nucleated RBC Absolute Count (auto) 0.00 K/uL Erythrocyte Sedimentation Rate 1 mm/HOUR (0-20) Glomerular Filtration Rate Calc > 60.0 Uric Acid 5.0 mg/dl (2.5-7.5) Calcium Level 9.2 mg/dl (8.4-10.2) Total Bilirubin 0.6 mg/dl (0.2-1.3) Aspartate Amino Transf (AST/SGOT) 21 U/L (0-35) Alanine Aminotransferase (ALT/SGPT) 29 U/L (0-56) Alkaline Phosphatase 63 U/L (0-126) C-Reactive Protein < 0.5 mg/dl (<1.0) Total Protein 6.7 gm/dl (6.3-8.2) Albumin 4.2 g/dl (3.5-5.0) EKG/Imaging Imaging INDICATION: foot pain EXAM DATE: 09/29/2017 6:17 AM COMPARISON: None. FINDINGS: 3 views left foot. Mineralization is normal. No acute alignment abnormality or fracture. Soft tissues are unremarkable. IMPRESSION: Normal left foot. Report Dictated By: Steve Pal MD at 09/29/2017 6:48 AM ED Course/Re-evaluation ED Course Discussed the results of labs with the patient. Negative imaging. Conservative treatment discussed with follow-up at orthopedic surgery if not improving. Decision to Disposition Date: Sep 29, 2017 Decision to Disposition Time: 07:54 Depart Departure Latest Vital Signs Vital Signs Date Time Temp Pulse Resp B/P (MAP) Pulse Ox O2 Delivery O2 Flow Rate FiO2 09/29/17 08:03 84 14 112/87 (95) 98 Room Air 09/29/17 06:08 97.8 Impression: Primary Impression: Foot pain, left Condition: Improved Disposition: HOME OR SELF-CARE Referrals: QASIM SCHMID MD (PCP) New Scripts Indomethacin (INDOMETHACIN) 25 Mg Capsule 25 MG PO DIRECTED, #27 CAPSULE 0 Refills Take 2 tablets three times a day for 3 days, then decrease to 1 tablet three times a day for 3 days, then stop. Take with food. Prov: HUMAIRA BROOKS MD 09/29/17 Patient Instructions: Musculoskeletal Pain (ED) Additional Instructions: We are not sure what is causing the foot pain. We will start with conservative measures to treat the pain. Indomethacin 25 mg, take 2 tablets 3 times a day for 3 days, then decrease to one tablet 3 times a day for 3 more days, then stop Elevate the foot and apply ice every hour while awake. Crutches with slowly increasing weight bearing as pain improves. If not improving, please call and make an appointment with [facility] for re-evaluation. HUMAIRA BROOKS MD Sep 29, 2017 06:12
[2017-09-29 06:38] LABS: PLATELET COUNT, AUTOMATED 148 K/uL (150-450)
--- NOTE | 2017-09-29 06:53 | RADIOLOGY IMAGING REPORT ---
FACILITY: [facility] - [place] PATIENT NAME: Kim Dorsey : 1985 MR: [id number] V: [id number] EXAM DATE: [id number] ORDERING PHYSICIAN: HUMAIRA BROOKS TECHNOLOGIST: [place] [facility] [place] Patient: Kim Dorsey : 1985 Visit/Account:[id number] Date of Sevice: 09/29/2017 INDICATION: foot pain EXAM DATE: 09/29/2017 6:17 AM COMPARISON: None. FINDINGS: 3 views left foot. Mineralization is normal. No acute alignment abnormality or fracture. Soft tissues are unremarkable. IMPRESSION: Normal left foot. Report Dictated By: Steve Pal MD at 09/29/2017 6:48 AM Report E-Signed By: Steve Pal MD at 09/29/2017 6:49 AM WSN:[id number]
[2017-09-29] MEDS ORDERED: INDO-1 PO (07:58)
[2017-09-29 08:03] VITALS: BP 112/87
== END 2017-09-29 08:10 | disposition home or self-care (01) ==
LOC: ER 06:08
DX: M79.672 Pain in left foot (principal)
CPT/HCPCS: 36415; 82040; 82247; 82310; 82374; 82435; 82565; 82947; 84075; 84132; 84155; 84295; 84450; 84460; 84520; 84550; 85025; 85651; 86140; 99283

== ENCOUNTER → 2018-03-09 | Outpatient (REF) | payer BC ==
[2016-08-06 08:21] VITALS: BMI 22.7
[~2018-03-09] MED LIST changes: +ERYT-108 PO; +INDO-21 PO
[2018-03-09 09:42] LABS: PLATELET COUNT, AUTOMATED 151 K/uL (150-450)
== END ==
LOC: ZZSENDIN 09:15
PROVIDERS: ATTEND Physician Assistant
DX: R10.31 Right lower quadrant pain (principal)
CPT/HCPCS: 82040; 82247; 82310; 82374; 82435; 82565; 82947; 84075; 84132; 84155; 84295; 84450; 84460; 84520; 85007; 85027

== ENCOUNTER 2018-07-14 08:04 | Emergency (ER) | payer BC ==
[2016-08-06 08:21] VITALS: Wt 76.2 kg
--- NOTE | 2018-07-14 08:08 | ER Report ---
History and Physical Time Seen By MD: 08:08 HPI/ROS CHIEF COMPLAINT: GI problem HISTORY OF PRESENT ILLNESS: Patient is a 33-year-old female who is been suffering with chronic abdominal issues including constipation bloating and cramping over the past year. She states that she had tested positive for "Giardia" and was treated and still on test here was dip positive for Giardia. She apparently was questioned by the [facility] as to figure out where she contracted this infection but apparently this is remained inconclusive. She presents today with concerns that she has a "parasite". She brought in a stool sample that appears to have stringy object in it. We are unable to send the sample to the lab as it is in a supportive bag and not actual collection bottle. She denies any fevers or chills. She denies any chest pain or shortness of breath. She denies that she's ever traveled out of the country. She denies drinking any stream or [place] water or fresh water. REVIEW OF SYSTEMS: Constitutional: No fever, no chills. Eyes: No discharge. ENT: No sore throat. Cardiovascular: No chest pain, no palpitations. Respiratory: No cough, no shortness of breath. Gastrointestinal: Abdominal bloating, constipation cramping. Genitourinary: No hematuria. Musculoskeletal: No back pain. Skin: No rashes. Neurological: No headache. Allergies: Coded Allergies: oxycodone (Unverified Allergy, Intermediate, SWOLLEN MOUTH OR HIVES , 09/29/17) propoxyphene (Verified Allergy, Intermediate, SWOLLEN MOUTH OR HIVES , 09/29/17) latex (Unverified Allergy, Unknown, 09/29/17) Uncoded Allergies: NARCOTICS (Allergy, Unknown, 07/14/18) Home Meds Active Scripts Pantoprazole Sodium (PANTOPRAZOLE SODIUM) 40 Mg Tablet.dr, 40 MG PO QDAY, #30 CAP 6 Refills Prov:QASIM SCHMID MD 03/18/16 Reported Medications Trazodone Hcl (TRAZODONE HCL) 50 Mg Tablet, 50 MG PO QHS 07/14/18 Desvenlafaxine Succinate (PRISTIQ ER) 50 Mg Tab.er.24h, 50 MG PO 07/14/18 Discontinued Reported Medications Erythromycin Base (ERYTHROMYCIN) 500 Mg Tablet, 500 MG PO DAILY 4/19/18 Multivitamin (DAILY MULTIPLE VITAMIN) 1 Each Tablet, 1 TAB PO DAILY 08/12/17 Hydroxyzine Hcl (HYDROXYZINE HCL) 25 Mg Tablet, 1 TAB PO QHS 08/12/17 Buspirone Hcl (BUSPIRONE HCL) 10 Mg Tablet, 1 TAB PO QHS, #10 TAB 08/12/17 Discontinued Scripts Indomethacin (INDOMETHACIN) 25 Mg Capsule, 25 MG PO DIRECTED, #27 CAPSULE 0 Refills Take 2 tablets three times a day for 3 days, then decrease to 1 tablet three times a day for 3 days, then stop. Take with food. Prov:HUMAIRA BROOKS MD 09/29/17 Citalopram Hydrobromide (CELEXA) 20 Mg Tablet, 20 MG PO QDAY, #90 TAB Prov:GAVIN HERNANDEZ DNP, CIRCULAR CLERK-BC 08/16/17 Past Medical/Surgical History Past medical history for gastroesophageal reflux disease, anxiety, history of mitral valve prolapse, hysterectomy and right oophorectomy Hx Smoking: Yes (OFF AND ON FOR 5 YRS) Smoking Status: Current: Some Days Smoker Hx Substance Use Disorder: No Hx Alcohol Use: Yes Constitutional Vital Sign - Last 24 Hours 07/14/18 08:10 Temp 98.1 Pulse 83 Resp 16 B/P (MAP) 120/84 Pulse Ox 99 O2 Delivery Room Air Physical Exam General Appearance: The patient is alert, has no immediate need for airway protection and no signs of toxicity. Eyes: Pupils equal and round no pallor or injection. ENT, Mouth: Mucous membranes are moist. Respiratory: There are no retractions, lungs are clear to auscultation. Cardiovascular: Regular rate and rhythm. Gastrointestinal: Abdomen is soft and non tender, no masses, bowel sounds normal. Neurological: Awake and alert Skin: Warm and dry, no rashes. Musculoskeletal: Neck is supple non tender. Extremities are nontender, nonswollen and have full range of motion. Medical Decision Making Data Points Result Diagram: 07/14/18 0836 07/14/18 0836 Laboratory Hematology Test 07/14/18 08:36 Red Blood Count 4.73 M/uL (4.17-5.56) Mean Corpuscular Volume 92.3 fL (80.0-96.0) Mean Corpuscular Hemoglobin 31.9 pg (26.0-33.0) Mean Corpuscular Hemoglobin Concent 34.5 g/dL (32.0-36.0) Red Cell Distribution Width 12.7 % (11.5-14.5) Mean Platelet Volume 10.0 fL (7.2-11.1) Neutrophils (%) (Auto) 64.4 % (39.4-72.5) Lymphocytes (%) (Auto) 26.9 % (17.6-49.6) Monocytes (%) (Auto) 6.9 % (4.1-12.4) Eosinophils (%) (Auto) 0.9 % (0.4-6.7) Basophils (%) (Auto) 0.9 % (0.3-1.4) Nucleated RBC Relative Count (auto) 0.0 /100WBC Neutrophils # (Auto) 2.0 K/uL (2.0-7.4) Lymphocytes # (Auto) 0.9 K/uL (1.3-3.6) Monocytes # (Auto) 0.2 K/uL (0.3-1.0) Eosinophils # (Auto) 0.0 K/uL (0.0-0.5) Basophils # (Auto) 0.0 K/uL (0.0-0.1) Nucleated RBC Absolute Count (auto) 0.00 K/uL Sodium Level 138 mmol/L (137-145) Potassium Level 4.1 mmol/L (3.5-5.0) Chloride Level 111 mmol/L (98-107) Carbon Dioxide Level 24 mmol/L (22-31) Blood Urea Nitrogen 10 mg/dl (7-18) Creatinine 0.80 mg/dl (0.52-1.04) Glomerular Filtration Rate Calc > 60.0 Random Glucose 90 mg/dl (75-110) Calcium Level 8.9 mg/dl (8.4-10.2) Total Bilirubin 0.9 mg/dl (0.2-1.3) Aspartate Amino Transf (AST/SGOT) 19 U/L (0-35) Alanine Aminotransferase (ALT/SGPT) 32 U/L (0-56) Alkaline Phosphatase 61 U/L (0-126) Total Protein 6.5 g/dl (6.3-8.2) Albumin 4.1 g/dl (3.5-5.0) Chemistry Test 07/14/18 08:36 White Blood Count 3.2 k/uL (4.5-11.0) Red Blood Count 4.73 M/uL (4.17-5.56) Hemoglobin 15.1 g/dL (12.0-16.0) Hematocrit 43.7 % (34.0-47.0) Mean Corpuscular Volume 92.3 fL (80.0-96.0) Mean Corpuscular Hemoglobin 31.9 pg (26.0-33.0) Mean Corpuscular Hemoglobin Concent 34.5 g/dL (32.0-36.0) Red Cell Distribution Width 12.7 % (11.5-14.5) Platelet Count 127 K/uL (150-450) Mean Platelet Volume 10.0 fL (7.2-11.1) Neutrophils (%) (Auto) 64.4 % (39.4-72.5) Lymphocytes (%) (Auto) 26.9 % (17.6-49.6) Monocytes (%) (Auto) 6.9 % (4.1-12.4) Eosinophils (%) (Auto) 0.9 % (0.4-6.7) Basophils (%) (Auto) 0.9 % (0.3-1.4) Nucleated RBC Relative Count (auto) 0.0 /100WBC Neutrophils # (Auto) 2.0 K/uL (2.0-7.4) Lymphocytes # (Auto) 0.9 K/uL (1.3-3.6) Monocytes # (Auto) 0.2 K/uL (0.3-1.0) Eosinophils # (Auto) 0.0 K/uL (0.0-0.5) Basophils # (Auto) 0.0 K/uL (0.0-0.1) Nucleated RBC Absolute Count (auto) 0.00 K/uL Glomerular Filtration Rate Calc > 60.0 Calcium Level 8.9 mg/dl (8.4-10.2) Total Bilirubin 0.9 mg/dl (0.2-1.3) Aspartate Amino Transf (AST/SGOT) 19 U/L (0-35) Alanine Aminotransferase (ALT/SGPT) 32 U/L (0-56) Alkaline Phosphatase 61 U/L (0-126) Total Protein 6.5 g/dl (6.3-8.2) Albumin 4.1 g/dl (3.5-5.0) EKG/Imaging Imaging [place]ACILITY[place] [facility] [place]IENT NAME: Kim Dorsey : 1985 MR: [id number] V: [id number] EXAM DATE: ORDERING PHYSICIAN: ROCHELLE DINERO TECHNOLOGIST: Location: [facility] - [place] Patient: Kim Dorsey : 1985 Visit/Account:[id number] Date of Sevice: 07/14/2018 Exam type: KUB SINGLE VIEW ABDOMEN History: Right lower quadrant pain, history of Giardia one year ago passed a were yesterday through stool Comparison: CT abdomen pelvis August 16, 2017. Findings: Bowel gas pattern is nonspecific. There is no gross evidence organomegaly. Small calcination right-sided pelvis likely represents a phlebolith. Gentle S- shaped scoliosis of the thoracolumbar spine IMPRESSION: 1. Nonspecific bowel gas pattern Report Dictated By: Kendy Christina MD at 07/14/2018 9:14 AM Report E-Signed By: Kendy Christina MD at 07/14/2018 9:16 AM WSN:CHINO ED Course/Re-evaluation ED Course 07/14/2018 8:35:14 am plan at this time will be to check CBC specifically looking for eosinophilia we'll also check liver enzymes and basic metabolic panel. If patient is to give a stool sample sent for ova and parasites along with other stool studies. Decision to Disposition Date: Jul 14, 2018 Decision to Disposition Time: 09:28 Depart Departure Latest Vital Signs Vital Signs Date Time Temp Pulse Resp B/P (MAP) Pulse Ox O2 Delivery O2 Flow Rate FiO2 07/14/18 08:10 98.1 83 16 120/84 99 Room Air Impression: Primary Impression: Abdominal pain Condition: Improved Disposition: HOME OR SELF-CARE Referrals: QASIM SCHMID MD (PCP) Patient Instructions: Abdominal Pain (ED) Additional Instructions: Return to the outpatient lab with a stool sample and your prescription Problem Qualifiers Primary Impression: Abdominal pain Abdominal location: generalized Qualified Codes: R10.84 - Generalized abdominal pain ROCHELLE DINERO MD Jul 14, 2018 08:08
[2018-07-14] MEDS ORDERED: DESV50TA9 PO (08:09)
[2018-07-14] MEDS ORDERED: TRAZ50TA34 PO (08:09)
[2018-07-14 08:40] LABS: PLATELET COUNT, AUTOMATED 127 K/uL (150-450)
--- NOTE | 2018-07-14 09:20 | RADIOLOGY IMAGING REPORT ---
FACILITY: [facility] PATIENT NAME: Kim Dorsey : 1985 MR: [id number] V: [id number] EXAM DATE: ORDERING PHYSICIAN: ROCHELLE DINERO TECHNOLOGIST: Location: [facility] - [place] Patient: Kim Dorsey : 1985 Visit/Account:[id number] Date of Sevice: 07/14/2018 Exam type: KUB SINGLE VIEW ABDOMEN History: Right lower quadrant pain, history of Giardia one year ago passed a were yesterday through s tool Comparison: CT abdomen pelvis August 16, 2017. Findings: Bowel gas pattern is nonspecific. There is no gross evidence organomegaly. Small calcination right- sided pelvis likely represents a phlebolith. Gentle S-shaped scoliosis of the thoracolumbar spine IMPRESSION: 1. Nonspecific bowel gas pattern Report Dictated By: Kendy Christina MD at 07/14/2018 9:14 AM Report E-Signed By: Kendy Christina MD at 07/14/2018 9:16 AM WSN:[email or web address]
[2018-07-14 09:30] VITALS: BP 101/73
== END 2018-07-14 09:42 | disposition home or self-care (01) ==
LOC: ER 08:07
DX: R10.84 Generalized abdominal pain (principal)
CPT/HCPCS: 36415; 74018; 82040; 82247; 82310; 82374; 82435; 82565; 82947; 83630; 84075; 84132; 84155; 84295; 84450; 84460; 84520; 85025; 87045; 87177; 87205; 99283

== ENCOUNTER 2018-12-17 22:24 | Emergency (ER) | payer BC ==
[2016-08-06 08:21] VITALS: BMI 22.7
[~2018-12-17 22:24] MED LIST changes: -BUPR-472 PO; -LORA-1456 PO
[2018-12-17] MEDS ORDERED: LORazepam 1 MG TAB PO ONE ×2 (22:35→23:20)
[2018-12-17 23:00] VITALS: BP 106/73
[2018-12-17] MEDS ORDERED: LORA-1456 PO (23:17)
--- NOTE | 2018-12-17 23:17 | ER Report ---
History and Physical Time Seen By MD: 22:33 Hx. of Stated Complaint: PATIENT IS CURRENTLY HAVING SOME MEDICATION CHANGES WELL EMOTIONAL/FAMILY CHANGES HPI/ROS CHIEF COMPLAINT: Anxiety/panic attack HISTORY OF PRESENT ILLNESS: 33-year-old female undergoing medication changes having severe anxiety attack and panic. Her primary care doctor weaned her off Pristiq and increased her Wellbutrin. She for the last 48 hours. His been having a lot of anxiety and panic attacks. Patients under a great deal of stressors. Patient was having a panic attack tonight. She's been unable to sleep. She had one beer trying to calm herself, which was unsuccessful. She has up calling 911 and the ambulance brought her into the ER. Patient describes an electric shock like sensation, causing muscle spasm throughout her body. REVIEW OF SYSTEMS: Respiratory: No cough, no dyspnea. Cardiovascular: No chest pain, no palpitations. Gastrointestinal: No vomiting, no abdominal pain. Musculoskeletal: No back pain. Allergies: Coded Allergies: oxycodone (Unverified Allergy, Intermediate, SWOLLEN MOUTH OR HIVES , 09/29/17) propoxyphene (Verified Allergy, Intermediate, SWOLLEN MOUTH OR HIVES , 09/29/17) latex (Unverified Allergy, Unknown, 09/29/17) Uncoded Allergies: NARCOTICS (Allergy, Unknown, 07/14/18) Home Meds Active Scripts Lorazepam (ATIVAN) 1 Mg Tablet, 1-2 MG PO Q6-8H PRN for anxiety, #15 Prov:JOVAN ANGELES DO 12/17/18 Pantoprazole Sodium (PANTOPRAZOLE SODIUM) 40 Mg Tablet.dr, 40 MG PO QDAY, #30 CAP 6 Refills Prov:QASIM SCHMID MD 03/18/16 Reported Medications Trazodone Hcl (TRAZODONE HCL) 50 Mg Tablet, 50 MG PO QHS 07/14/18 Desvenlafaxine Succinate (PRISTIQ ER) 50 Mg Tab.er.24h, 50 MG PO 07/14/18 Hx Smoking: Yes (OFF AND ON FOR 5 YRS) Smoking Status: Current: Some Days Smoker Hx Substance Use Disorder: No Hx Alcohol Use: Yes Constitutional Vital Sign - Last 24 Hours 12/17/18 12/17/18 12/17/18 12/17/18 22:26 22:30 22:33 22:45 Temp 99.1 Pulse 105 Resp 18 B/P (MAP) 128/106 (113) 145/90 (108) 128/106 128/87 (101) Pulse Ox 92 O2 Delivery Room Air 12/17/18 12/17/18 22:54 23:00 Pulse 112 B/P (MAP) 106/73 (84) Pulse Ox 96 Physical Exam Vital signs stable, tachycardia, afebrile, pulse ox normal General Appearance: The patient is alert, has no immediate need for airway protection and no current signs of toxicity. Crying, tearful, upset, anxious- appearing HEENT: Pupils equal and round no injection. Puffy, swollen eyelids from crying, oropharynx without redness or exudate Respiratory: Chest is non tender, lungs are clear to auscultation. Cardiac: regular rate and rhythm Gastrointestinal: Abdomen is soft and non tender, no masses, bowel sounds normal. Musculoskeletal: Neck: Neck is supple and non tender. Extremities have full range of motion and are non tender. Skin: No rashes or lesions. DIFFERENTIAL DIAGNOSIS: After history and physical exam differential diagnosis was considered for depression including functional and major depression, situational depression, medication side effect, drugs and alcohol abuse. Medical Decision Making ED Course/Re-evaluation ED Course Patient with acute anxiety and tearfulness. Patient was medicated with Ativan 1 mg after observation a 45 minutes. She is much improved. She would like to go home. Patient's discharged home with Ativan 1 mg 2 tablets for additional doses should she need one to help her sleep tonight. Patient's given a prescription for Ativan 1 mg tablet #15. Patient is undergoing medication withdrawal as well as excessive anxiety and stressors. She is advised to follow-up with Dr. Joya next week. Decision to Disposition Date: Dec 17, 2018 Decision to Disposition Time: 23:09 Depart Departure Latest Vital Signs Vital Signs Date Time Temp Pulse Resp B/P (MAP) Pulse Ox O2 Delivery O2 Flow Rate FiO2 12/17/18 23:00 106/73 (84) 12/17/18 22:54 112 96 12/17/18 22:33 99.1 18 Room Air Impression: Primary Impression: Panic attack Additional Impression: Depression Condition: Improved Disposition: HOME OR SELF-CARE Referrals: QASIM SCHMID MD (PCP) New Scripts Lorazepam (ATIVAN) 1 Mg Tablet 1-2 MG PO Q6-8H PRN for anxiety, #15 Prov: JOVAN ANGELES DO 12/17/18 Patient Instructions: Anxiety (ED) Additional Instructions: Follow-up with your primary care in 3-5 days if unimproved Problem Qualifiers Additional Impression: Depression Depression Type: unspecified Qualified Codes: F32.9 - Major depressive disorder, single episode, unspecified JOVAN ANGELES DO Dec 17, 2018 23:17
[2018-12-19] MEDS ORDERED: BUPR-472 PO (00:41)
== END 2018-12-17 23:35 | disposition home or self-care (01) ==
LOC: ER 22:33
DX: F41.0 Panic disorder [episodic paroxysmal anxiety] (principal); F32.9 Major depressive disorder, single episode, unspecified; F17.210 Nicotine dependence, cigarettes, uncomplicated; Z79.899 Other long term (current) drug therapy
CPT/HCPCS: 99283

== ENCOUNTER → 2018-12-17 | Outpatient (CLI) | payer BC ==
[2016-08-06 08:21] VITALS: BMI 22.7
[~2018-12-17] MED LIST changes: +BUPR-472 PO; +LORA-1456 PO; +TRAZ50TA52 PO
== END ==
LOC: AMB 22:04
PROVIDERS: ATTEND Nurse Practitioner
DX: F41.0 Panic disorder [episodic paroxysmal anxiety] (principal)
CPT/HCPCS: A0425; A0429